=== PATIENT | male | born 1980 | race Caucasian/White ===

== ENCOUNTER → 2022-08-07 | Emergency (ER) | payer OTHER ==
[~2022-08-07] VITALS: Ht 170.2 cm; Wt 76.0 kg
[~2022-08-07] MED LIST: IBUPROFEN 600MG TABLET PO ONE
[2022-08-07 16:35] VITALS: BP 118/69
== END ==
LOC: ER 16:24
DX: S92.252A Displaced fracture of navicular [scaphoid] of left foot, initial encounter for closed fracture (principal); S63.591A Other specified sprain of right wrist, initial encounter; S53.491A Other sprain of right elbow, initial encounter; W50.2XXA Accidental twist by another person, initial encounter; Y93.89 Activity, other specified; Y92.89 Other specified places as the place of occurrence of the external cause; Y99.8 Other external cause status
CPT/HCPCS: 29125; 73080; 73110; 99284